=== PATIENT | female | born 1995 | race Two or more races ===

== ENCOUNTER 2018-10-20 08:03 | Inpatient (IN) | payer OTHER ==
[2018-10-20] MEDS: DEXTROSE 5%-LACTATED RINGERS 1,000 ML IV SCH (09:15)
--- NOTE | 2018-10-20 09:16 | HP ---
Past Medical History - Primary Care Physician PCP:: Raul Lakhani - Admission Chief Complaint: scheduled IOL History Source: Patient Limitations to Obtaining History: No Limitations - Past Medical History HEALTHCARE ARCHITECT: No: Alzheimer's, CVA, Dementia, Migraine, Multiple Sclerosis, Peripheral Neuropathy, Parkinson's, Seizure, Syncope, TIA, Vertigo, Other Cardiovascular: No: AFIB, Aneurysm, Aortic Insufficiency, Aortic Stenosis, CAD, CHF, Deep Vein Thrombosis, HTN, Hyperlipdemia, AR, Mitral Insufficiency, Mitral Stenosis, Murmur, Pulmonary Hypertension, Other Hepatobiliary: Yes: Hepatitis B (diagnosed during ) Renal/: Yes: Renal Calculi (history of) ...: 1 Heme/Onc: No: Anemia, B12 Deficiency, Bleeding Disorder, Cancer, Current Chemotherapy, Current Radiation Therapy, Hemochromatosis, Hypercoaguable State, Myeloproliferative Synd, Sickle Cell Disease, Sickle Cell Trait, Thrombocytopenia, Other Infectious Disease: Yes: Other (as noted above) Musculoskeletal: No: Bursitis, Chronic low back pain, Hemiparesis, Hemiplegia, Osteoarthritis, Paraplegia, Other Rheumatology: No: Fibromyalgia, Gout, Lupus, Rheumatoid Arthritis, Sarcoidosis, Vasculitis, Other ENT: No: Allergic Rhinitis, Sinusitis, Other Endocrine: No: Bacon's Disease, [place]'s Disease, Diabetes Insipidus, Diabetes Mellitus, Hyperparathyroidism, Hyperthyroidism, Hypothyroidism, Osteopenia, SIADH, Other Dermatology: No: Basal Cell, Cellulitis, Eczema, Melanoma, Psoriasis, Squamous Cell, Other - Past Surgical History Past Surgical History: Yes: None Hx Myomectomy: No Hx Transabdominal Cerclage: No - Smoking History Have you smoked in the past 12 months: No - Alcohol/Substance Use Hx Alcohol Use: No - Social History History of Recent Travel: No Home Medications - Allergies Allergies/Adverse Reactions: Allergies Allergy/AdvReac Type Severity Reaction Status Date / Time No Known Allergies Allergy Verified 10/20/18 08:34 - Home Medications Home Medications: Ambulatory Orders Ferrous Sulfate 325 mg PO BID 07/11/18 Pnv No.95/Ferrous Fum/Folic AC [ Vitamin Tablet] 1 each PO DAILY Family Disease History - Family Disease History Family History: Unremarkable (as per patient) Review of Systems - Review of Systems Constitutional: reports: No Symptoms Eyes: reports: No Symptoms HENT: reports: No Symptoms Neck: reports: No Symptoms Cardiovascular: reports: No Symptoms Respiratory: reports: No Symptoms Gastrointestinal: reports: No Symptoms Genitourinary: reports: No Symptoms Breasts: reports: No Symptoms Reported Musculoskeletal: reports: No Symptoms Integumentary: reports: No Symptoms Neurological: reports: No Symptoms Endocrine: reports: No Symptoms Hematology/Lymphatic: reports: No Symptoms Psychiatric: reports: No Symptoms Physical Exam - Maternity Constitutional: Yes: Well Nourished HENT: Yes: Atraumatic, Normocephalic Neck: Yes: Supple Cardiovascular: Yes: Regular Rate and Rhythm Breast(s): Yes: Other (deferreed) - Abdominal Exam/OB Number of Fetuses: Single Presentation: Vertex (by clinical examination (Carl's)) Contractions: No Regularity: Irritability Intensity: Unaware Monitor Mode: External Category: I Accelerations: Uniform Decelerations: None - Vaginal Exam/OB Vaginal Bleediing: No Speculum Exam: No Dilatation (cm): 0 Effacement (%): 0 Amniotic Membrane Status: Intact Station: -3 - Physical Exam Musculoskeletal: Yes: WNL Extremities: Yes: WNL Edema: LLE: Trace, RLE: Trace Integumentary: Yes: WNL ...Motor Strength: WNL Psychiatric: Yes: WNL - Labs Lab Results: ordered Imaging - Results Ultrasound: Report Reviewed Problem List - Problems (1) Code(s): Z34.90 - ENCNTR FOR SUPRVSN OF NORMAL , UNSP, UNSP TRIMESTER Qualifiers: Weeks of gestation: 41 weeks Qualified Code(s): Z3A.41 - 41 weeks gestation of Assessment/Plan 23 y/o G1 @ 41.1 wks presenting for induction of labor, reassuring maternal and statuses, + Hep B antigen in and additional labs ordered on admission, Patient was counseled regarding Hep B in and induction of labor, all questions answered. Informed consent obtained. -Start IOL with PO cytotec.
[2018-10-20 09:31] VITALS: BMI 29.9
[2018-10-20 10:03] LABS: BASO % 0.3 % (0-2.0); EOS % 1.3 % (0-4.5); HEMATOCRIT 32.3 % (32.4-45.2); HEMOGLOBIN 10.6 GM/dL (10.7-15.3); LYMPH % 16.5 % (8-40); MCHC 32.8 g/dl (32.0-36.0); MEAN CELL VOLUME 94.6 fl (80-96); MEAN PLT VOLUME 7.7 fl (7.5-11.1); MONO % 7.6 % (3.8-10.2); NEUT % 74.3 % (42.8-82.8); PLATELET COUNT 246 K/MM3 (134-434); RBC 3.42 M/mm3 (3.60-5.2); WHITE BLOOD COUNT 7.4 K/mm3 (4.0-10.0)
[2018-10-20 10:16] LABS: INR 0.97 (0.83-1.09); PROTHROMBIN TIME (PATIENT) 11.5 SEC (9.7-13.0)
[2018-10-20 10:19] LABS: ACTIVATED PTT 29.7 SECONDS (25.2-36.5)
[2018-10-20 10:36] LABS: BILIRUBIN,TOTAL 0.6 mg/dL (0.2-1); BLOOD UREA NITROGEN 9.6 mg/dL (7-18); CALCIUM 8.9 mg/dL (8.5-10.1); CREATININE 0.7 mg/dL (0.55-1.3); POTASSIUM 4.1 mmol/L (3.5-5.1); TOT PROT 6.7 g/dl (6.4-8.2)
[2018-10-20] MEDS ORDERED: MISOPROSTOL 100 MCG TABLET PV ONE ×2 (10:40→12:30)
[2018-10-20] MEDS ORDERED: MISOPROSTOL 100 MCG TABLET PV SCH (15:00)
[2018-10-20] MEDS: MISOPROSTOL 100 MCG TABLET PO SCH ×2 (15:25→20:15)
[2018-10-20] MEDS ORDERED: ePHEDrine SULFATE 50 MG/1 ML AMPULE ONE (15:54)
[2018-10-20] MEDS ORDERED: PROMETHAZINE HCL 25 MG/1 ML VIAL IVPB ONE (16:54)
[2018-10-20] MEDS ORDERED: BUTORPHANOL TARTRATE 1 MG/ML VIAL IVPB ONE (16:54)
--- NOTE | 2018-10-20 16:54 | PN ---
Progress Note, Labor Vaginal Exam #1 Labor Exam Date: 10/20/18 Labor Exam Time: 16:54 Heart Rate (range): Cat I Dilatation: 0 Effacement (%): 0 Amniotic Membrane Status: Intact Presentation: Vertex/Position Station: -3 Remarks: Pt c/o pain Cervix unchanged Stadol prn Continue cytotec induction
[2018-10-20] MEDS ORDERED: PROMETHAZINE HCL 25 MG/1 ML VIAL ONE (19:57)
[2018-10-20] MEDS ORDERED: BUTORPHANOL TARTRATE 2 MG/ML VIAL ONE (19:57)
[2018-10-21] MEDS ORDERED: FENTANYL/BUPIVACAINE/NS/PF - PCEA - 50 ML DISP.SYRIN EP ONE ×3 (00:29→09:13)
[2018-10-21] MEDS ORDERED: NALOXONE HCL 0.4 MG/ML VIAL IVPUSH PRN (01:10)
[2018-10-21] MEDS ORDERED: FENTANYL/BUPIVACAINE/NS/PF - PCEA - 50 ML DISP.SYRIN EP SCH (01:15)
[2018-10-21 02:07] LABS: HEPATITIS B CORE ANTIBODY,IGM Negative (Negative)
[2018-10-21] MEDS ORDERED: OXYTOCIN 30 UNITS in 0.9% NS 30 UNIT/500 ML INFUS.BAG IVPB ONE (04:56)
[2018-10-21] MEDS ORDERED: OXYTOCIN 30 UNITS in 0.9% NS 30 UNIT/500 ML INFUS.BAG IVPB SCH (05:15)
[2018-10-21] MEDS: MISOPROSTOL 100 MCG TABLET PO SCH ×3 (05:22→07:49)
--- NOTE | 2018-10-21 05:34 | PN ---
Progress Note, Labor Vaginal Exam #2 Labor Exam Date: 10/21/18 Labor Exam Time: 05:33 Heart Rate (range): Cat I Dilatation: 3 Effacement (%): 100 Amniotic Membrane Status: Intact Presentation: Vertex/Position Station: -3 Remarks: Pt s/p epidural, more comfortable Continue pit @ 1mu/min. Will cont to increase AROM next check Anticipate MADELYN Corley MD
--- NOTE | 2018-10-21 07:40 | PN ---
Progress Note, Labor Vaginal Exam #3 Labor Exam Date: 10/21/18 Labor Exam Time: 07:38 Heart Rate (range): Cat II Dilatation: 5 Effacement (%): 100 Amniotic Membrane Status: Ruptured Remarks: Pt now getting more uncomfortable Pt having intermittent variable and early decelerations with good recovery AROM, light meconium Now 5cm Will reposition and if no pain relief, ask for anesthesia to re-evaluate Ayde Corley MD
[2018-10-21] MEDS ORDERED: LIDOCAINE HCL 1% PRESERVATIVE FREE - 30ML VIAL ONE (09:45)
[2018-10-21] MEDS ORDERED: OXYTOCIN 20 UNITS in 0.9% NS 20 UNIT/1,000 ML INFUS.BAG IV ONE ×2 (09:46→13:05)
[2018-10-21] MEDS: OXYTOCIN 20 UNITS in 0.9% NS 20 UNIT/1,000 ML INFUS.BAG IV SCH ×2 (10:20→21:27)
[2018-10-21] MEDS ORDERED: METHYLERGONOVINE MALEATE 0.2 MG/1 ML AMP IM PRN (10:42)
[2018-10-21] MEDS ORDERED: WITCH HAZEL 50% (TUCKS) 40 PAD/JAR PAD TP PRN (10:42)
[2018-10-21] MEDS ORDERED: BENZOCAINE 28 GM HEMORRHOIDAL OINTMENT TP PRN (10:42)
[2018-10-21] MEDS ORDERED: BISACODYL 10 MG SUPP.RECT RC PRN (10:42)
--- NOTE | 2018-10-21 10:47 | PN ---
Delivery - Delivery Vaginal Delivery: Spontaneous Type of Anesthesia: Epidural Episiotomy/Laceration: Midline EBL (cc): 300 Delivery, Single - Feeding Plan Initial Plan: Exclusive throughout hospitalization Remarks - Remarks Remarks: Normal spontaneous vaginal delivery of a live boy over midline episiotomy. Nose / Oropharynx suctioned @ perineum. Cord clamped and cut. Baby handed to nurse. Placenta expelled spontaneously intact. Midline episiotomy repaired with 2.0 Chromic.
[2018-10-21] MEDS ORDERED: ACETAMINOPHEN 325 MG TABLET (FP) ONE (10:58)
[2018-10-21] MEDS ORDERED: IBUPROFEN 600 MG TABLET (FP) PO ONE (10:58)
[2018-10-21] MEDS: ACETAMINOPHEN 325 MG TABLET (FP) PO PRN ×3 (11:00→23:40)
[2018-10-21] MEDS: IBUPROFEN 600 MG TABLET (FP) PO PRN ×3 (11:00→23:39)
[2018-10-21] MEDS: DEXTROSE 5%-LACTATED RINGERS 1,000 ML IV SCH (12:08)
[2018-10-21] MEDS: oxyCODONE HCL 5 MG TABLET PO PRN ×2 (13:05→18:17)
[2018-10-21] MEDS ORDERED: oxyCODONE HCL 5 MG TABLET ONE (13:05)
[2018-10-21] MEDS: BENZOCAINE 20% 57 GM BOTTLE TP PRN ×2 (14:46→23:44)
[2018-10-21 19:07] LABS: HEP B CORE AB, IGM Negative (Negative)
[2018-10-21] MEDS: FERROUS SO4 325 MG TABLET (FP) PO SCH (21:24)
[2018-10-22] MEDS: IBUPROFEN 600 MG TABLET (FP) PO PRN ×4 (04:46→20:46)
[2018-10-22] MEDS: ACETAMINOPHEN 325 MG TABLET (FP) PO PRN ×4 (04:46→20:46)
--- NOTE | 2018-10-22 07:36 | PN ---
Post Progress Note - Subjective Subjective: Patient not yet ambulating, tolerating, PO, breast and bottle feeding, lochia decreased. Type of Delivery: Vital Signs: Vital Signs Temperature 99.6 F 10/22/18 06:00 Pulse Rate 80 10/22/18 06:00 Respiratory Rate 18 10/21/18 22:00 Blood Pressure 113/62 10/22/18 06:00 O2 Sat by Pulse Oximetry (%) 100 10/21/18 21:00 Breast Exam: Yes: Other (deferred) Uterus: Yes: Fundus Firm Incision: Yes: Sutures intact Abdomen/GI: Yes: Abdomen soft Lochia, amount: Small Extremities: Yes: Calves non-tender Activity: Other (encouraged to ambulate) - Labs Labs: CBC WBC 7.4 K/mm3 (4.0-10.0) 10/20/18 09:23 RBC 3.42 M/mm3 (3.60-5.2) L 10/20/18 09:23 Hgb 10.6 GM/dL (10.7-15.3) L 10/20/18 09:23 Hct 32.3 % (32.4-45.2) L 10/20/18 09:23 MCV 94.6 fl (80-96) 10/20/18 09:23 MCH 31.0 pg (25.7-33.7) 10/20/18 09:23 MCHC 32.8 g/dl (32.0-36.0) 10/20/18 09:23 RDW 12.0 % (11.6-15.6) 10/20/18 09:23 Plt Count 246 K/MM3 (134-434) 10/20/18 09:23 MPV 7.7 fl (7.5-11.1) 10/20/18 09:23 Absolute Neuts (auto) 5.5 K/mm3 (1.5-8.0) 10/20/18 09:23 Neutrophils % 74.3 % (42.8-82.8) 10/20/18 09:23 Lymphocytes % 16.5 % (8-40) 10/20/18 09:23 Monocytes % 7.6 % (3.8-10.2) 10/20/18 09:23 Eosinophils % 1.3 % (0-4.5) 10/20/18 09:23 Basophils % 0.3 % (0-2.0) 10/20/18 09:23 Nucleated RBC % 0 % (0-0) 10/20/18 09:23 Problem List - Problems (1) Code(s): Z34.90 - ENCNTR FOR SUPRVSN OF NORMAL , UNSP, UNSP TRIMESTER Qualifiers: Weeks of gestation: 41 weeks Qualified Code(s): Z3A.41 - 41 weeks gestation of Assessment/Plan PPD#1 in stable condition - consult -continue PP care -Anticipate d/c home tomorrow -Infant Circ desired
[2018-10-22 10:12] LABS: BASO % 0.3 % (0-2.0); EOS % 0.6 % (0-4.5); HEMATOCRIT 23.5 % (32.4-45.2); HEMOGLOBIN 7.7 GM/dL (10.7-15.3); LYMPH % 9.7 % (8-40); MCH 31.2 pg (25.7-33.7); MEAN CELL VOLUME 94.5 fl (80-96); MEAN PLT VOLUME 8.3 fl (7.5-11.1); MONO % 4.9 % (3.8-10.2); NEUT % 84.5 % (42.8-82.8); RBC 2.48 M/mm3 (3.60-5.2); RDW 11.9 % (11.6-15.6); WHITE BLOOD COUNT 18.3 K/mm3 (4.0-10.0)
[2018-10-22] MEDS: FERROUS SO4 325 MG TABLET (FP) PO SCH ×2 (10:37→22:04)
[2018-10-22] MEDS: PRENATAL VITAMINS W/ FOLIC ACID TABLET (FP) PO SCH (10:37)
[2018-10-22 11:32] LABS: PLATELET COUNT 221 K/MM3 (134-434)
[2018-10-22] MEDS ORDERED: SENNOSIDES/DOCUSATE COMBO (SENNA PLUS) TABLET (UD) PO PRN (22:00)
--- NOTE | 2018-10-23 05:05 | DS ---
Physical Examination Vital Signs: Vital Signs Temperature 98.5 F 10/22/18 21:00 Pulse Rate 116 H 10/22/18 21:00 Respiratory Rate 19 10/22/18 21:00 Blood Pressure 127/72 10/22/18 21:00 O2 Sat by Pulse Oximetry (%) 100 10/22/18 21:00 Constitutional: Yes: Well Nourished, No Distress, Calm Eyes: Yes: WNL, Conjunctiva Clear, EOM Intact HENT: Yes: WNL, Atraumatic, Normocephalic Neck: Yes: WNL, Supple, Trachea Midline Cardiovascular: Yes: WNL, Regular Rate and Rhythm Respiratory: Yes: WNL, Regular, CTA Bilaterally Gastrointestinal: Yes: WNL, Normal Bowel Sounds Musculoskeletal: Yes: WNL Extremities: Yes: WNL Edema: No Integumentary: Yes: WNL Neurological: Yes: WNL, Alert, Oriented ...Motor Strength: WNL Psychiatric: Yes: WNL Labs: CBC, BMP 10/22/18 09:38 10/20/18 09:23 Discharge Summary Reason For Visit: INDUCTION OF LABOR Current Active Problems (Acute) Procedures: Principal: Hospital Course: Patient presented for IOL for postdates She had an uncomplicated She met all milestones She was discharged home on PPD#2 M. MD Jory Condition: Stable - Instructions Diet, Activity, Other Instructions: Regular Diet Referrals: Kaity Benítez CNM [Certified Nurse Multi Slide Machine Tender] - Disposition: HOME - Home Medications Comprehensive Discharge Medication List: Ambulatory Orders Ferrous Sulfate 325 mg PO BID 07/11/18 Pnv No.95/Ferrous Fum/Folic AC [ Vitamin Tablet] 1 each PO DAILY Ibuprofen 600 mg PO Q6H PRN #30 tablet 10/22/18
[2018-10-23] MEDS: BENZOCAINE 20% 57 GM BOTTLE TP PRN (08:35)
[2018-10-23] MEDS: ACETAMINOPHEN 325 MG TABLET (FP) PO PRN (08:36)
[2018-10-23] MEDS: IBUPROFEN 600 MG TABLET (FP) PO PRN (08:36)
[2018-10-23 09:36] VITALS: BP 116/70; PULSE 98; TEMP 98.4
[2018-10-23] MEDS: FERROUS SO4 325 MG TABLET (FP) PO SCH (10:45)
[2018-10-23] MEDS: PRENATAL VITAMINS W/ FOLIC ACID TABLET (FP) PO SCH (10:45)
[2018-10-23] MEDS: OXYTOCIN 20 UNITS in 0.9% NS 20 UNIT/1,000 ML INFUS.BAG IV SCH (10:45)
[2018-10-26 11:56] LABS: HEP B CORE AB, TOT Positive (Negative)
== END 2018-10-23 15:00 | disposition home or self-care (01) | DRG 560 ==
LOC: JLDR 08:03 → J3W 10-21 13:49
PROVIDERS: ADMIT Obstetrics & Gynecology; ATTEND Obstetrics & Gynecology
PROC: 10E0XZZ Delivery of Products of Conception, External Approach (ICD-10-PCS; principal; 2018-10-21)
PROC: 0W8NXZZ Division of Female Perineum, External Approach (ICD-10-PCS; 2018-10-21)
DX: O48.0 Post-term pregnancy (principal); Z3A.41 41 weeks gestation of pregnancy; O98.413 Viral hepatitis complicating pregnancy, third trimester; B19.10 Unspecified viral hepatitis B without hepatic coma; Z37.0 Single live birth
CPT/HCPCS: 36415; 59409; 80053; 85025; 85610; 85730; 86593; 86704; 86705; 86706; 86707; 86850; 86900; 86901